=== PATIENT | female | born 1960 | race Caucasian/White ===

== ENCOUNTER 2016-08-23 20:12 | Emergency (ER) | payer BC ==
[~2016-08-23] VITALS: Ht 172.7 cm; Wt 68.2 kg
[~2016-08-23 20:12] MED LIST: IBUP-1542 PO
[2016-08-23 20:45] VITALS: Ht 172.7 cm; Wt 68.2 kg
[2016-08-23] MEDS ORDERED: HYDROCODONE/APAP (5/325) TAB PO ONE (21:00)
--- NOTE | 2016-08-23 22:16 | RADRPT ---
PROCEDURE: XR shoulder. CLINICAL INDICATION: Pain TECHNIQUE: Three views of the right shoulder were performed. COMPARISON: None available. FINDINGS: There is normal mineralization and alignment. No fracture or osseous lesion is identified. The joint spaces are preserved. The soft tissues are unremarkable. RPTAT:HJJR IMPRESSION: Unremarkable right shoulder series. Physician Wes Date Time Electronically viewed and signed by Olaf Umanzor Physician on 08/23/2016 22:16 /
--- NOTE | 2016-08-23 22:16 | RADRPT ---
PROCEDURE: XR Chest. CLINICAL INDICATION: Chest pain. Abdominal pain TECHNIQUE: Portable AP semi - erect view of the chest was obtained. COMPARISON: 12/04/2015 FINDINGS: The cardiomediastinal silhouette is within normal limits. The lungs are clear with slightly low aston g volumes and a suboptimal inspiratory response. There is no evidence for pleural effusion, pneumot horax or pulmonary vascular congestion. The osseous structures are intact with no evidence for acut e abnormality. Calcification is visible within the aortic arch. No free air seen below the diaphrag m RPTAT:HJJR IMPRESSION: 1. No evidence for acute intrathoracic pathology or change from 12/04/2015 allowing for the differen t degrees of inspiration. 2. Aortic atherosclerosis is present. Physician Wes Date Time Electronically viewed and signed by Physician Wes on 08/23/2016 22:16 JR/
[2016-08-23] MEDS ORDERED: HYDR-906 PO (22:45)
[2016-08-23] MEDS ORDERED: HYDROCODONE/APAP (7.5/325) TAB PO ONE (23:00)
[2016-08-23 23:17] VITALS: BP 134/83; PULSE 63; RESP 18; TEMP 98.3
--- NOTE | 2016-08-24 00:36 | ERA ---
ER Documentation Chief Complaint Date/Time DATE: 08/24/16 TIME: 00:29 Chief Complaint r shoulder pain x 1 week; worse today HPI Patient is a 55-year-old female who works in the [employer]. Patient is complaining of right shoulder pain for the past week. Patient's pain is worsened today. Patient claims that the pain radiates down to the chest. Patient's pain is worse with movement and palpation. Patient has not taken any medications to relieve the pain. There are no other associated manifestations. Patient has no cardiac risk factors given in history. ROS All systems reviewed and are negative except as per history of present illness. Medications Home Meds Active Scripts Hydrocodone/Acetaminophen (Kingsley 5-325 Tablet) 1 Each Tablet, 1 TAB PO Q6H Y for PAIN, #20 TAB Prov:RAQUEL GLOVER PA-C 08/23/16 Ibuprofen* (Motrin*) 600 Mg Tab, 600 MG PO Q6, #30 TAB Prov:CYNTHIA HAMILTON PA-C 10/17/15 Allergies Allergies: Coded Allergies: No Known Allergy (Unverified , 01/06/14) PMhx/Soc History of Surgery: Yes (L Achilles Tendon Surgery, abd ulcer sx) Anesthesia Reaction: No Hx Neurological Disorder: No Hx Respiratory Disorders: No Hx Cardiac Disorders: No Hx Psychiatric Problems: No Hx Miscellaneous Medical Probl: Yes (Viral AGE,Nephrolithiasis,Otitis Externa, L Achilles Tendonitis) Hx Alcohol Use: No Hx Substance Use: No Hx Tobacco Use: Yes (Quit years ago) Smoking Status: Former smoker Physical Exam Vitals Vital Signs Date Time Temp Pulse Resp B/P Pulse Ox O2 Delivery O2 Flow Rate FiO2 08/23/16 23:17 98.3 63 18 134/83 98 Room Air 08/23/16 20:45 98.1 90 16 156/95 100 Physical Exam Const: Cachectic 55-year-old female Head: Atraumatic Eyes: Normal Conjunctiva ENT: Normal External Ears, Nose and Mouth. Neck: Full range of motion..~ No meningismus. Resp: Clear to auscultation bilaterally Cardio: Regular rate and rhythm, no murmurs. Chest is mildly tender to palpation. Abd: Soft, non tender, non distended. Normal bowel sounds Skin: No petechiae or rashes Back: No midline or flank tenderness Ext: Limited range of motion of the right shoulder secondary to pain. Tenderness palpation. Positive empty can test and crossover test. Pain with passive and active range of motion. Pain is worse with external ROM. Neur: Awake and alert Psych: Normal Mood and Affect Results 24 hrs Current Medications Medications (Trade) Dose Ordered Sig/Mimi Route PRN Reason Start Time Stop Time Status Last Admin Dose Admin Acetaminophen/ Hydrocodone Bitart (Kingsley (5/325)) 1 tab ONCE ONCE PO 08/23/16 21:00 08/23/16 21:01 DC 08/23/16 21:02 Acetaminophen/ Hydrocodone Bitart (Kingsley (7.5-325)) 1 tab ONCE ONCE PO 08/23/16 23:00 08/23/16 23:01 DC 08/23/16 22:49 Procedures/MDM Patient is complaining of right shoulder pain starting within the past week. Patient denies any history of trauma but states that it is worse with movement and palpation. The patient's pain is most likely musculoskeletal tendinopathy but due to the location went ahead and got a ECG. The ECG was negative. X- rays of the shoulder and chest were taken and were unremarkable. Patient has asked for a note off work. We will go ahead and get a work slip for the night as well as pain medication to take home. Patient has received 2 Kingsley's in the ER. Have given her a list of mailing specialist who can manage her condition further. I have spoken with Dr. Reyes and he agrees with this assessment and plan. Departure Diagnosis: Primary Impression: Right shoulder tendonitis Additional Impressions: Right shoulder tendinitis Shoulder tendonitis Qualified Code: M75.81 - Shoulder tendonitis, right Shoulder tendinitis Qualified Code: M75.81 - Shoulder tendinitis, right Condition: Stable Patient Instructions: Tendonitis Referrals: KANDI IVERSON MD,JOSE RAMON BOYD,RUBY HICKMAN,BARBIE SCHULTZ,LIZZETH PENA,ADA RAMIREZ,MALDONADO CARDENAS,IDRIS DIAMOND,PAULINO DRAKE,CHINYERE HEIN,KARY RODRIGUEZ,AGUSTINA MYLES,IN GRACE HARRISON Additional Instructions: Follow-up with mailing specialist in the next 1-3 days. RAQUEL GLOVER PA-C Aug 24, 2016 00:36
[2016-08-24] MEDS ORDERED: IBUP-1542 PO (10:42)
== END 2016-08-23 23:17 | disposition home or self-care (01) ==
LOC: FTE 20:12
DX: M75.81 Other shoulder lesions, right shoulder (principal); R07.9 Chest pain, unspecified; Z87.891 Personal history of nicotine dependence
CPT/HCPCS: 71010; 93005

== ENCOUNTER 2016-08-24 10:16 | Emergency (ER) | payer BC ==
[~2016-08-24] VITALS: Ht 172.7 cm; Wt 70.0 kg
[~2016-08-24 10:16] MED LIST changes: +HYDR-906 PO
[2016-08-24 10:19] VITALS: Ht 172.7 cm; Wt 70.0 kg
[2016-08-24] MEDS ORDERED: IBUP-1542 PO (10:42)
--- NOTE | 2016-10-09 06:33 | ERA ---
ER Documentation Chief Complaint Date/Time DATE: 08/24/16 TIME: 1027 Chief Complaint RT SHOULDER , RT UPPER BACK PAIN RADIATING TO CHEST X 1 WEEK HPI 56-year-old female presents to the emergency department complaining of an atraumatic shoulder pain 1 week. She denies any fevers chills or functional loss. She denies any significant abdominal or cardiac concerns radiating to her shoulder. ROS All systems reviewed and are negative except as per history of present illness. Medications Home Meds Active Scripts Ibuprofen* (Motrin*) 600 Mg Tab, 600 MG PO Q6H Y for PAIN AND OR ELEVATED TEMP, #30 TAB Prov:RAQUEL GLOVER PA-C 08/24/16 Hydrocodone/Acetaminophen ([place] 5-325 Tablet) 1 Each Tablet, 1 TAB PO Q6H Y for PAIN, #20 TAB Prov:RAQUEL GLOVER PA-C 08/23/16 Ibuprofen* (Motrin*) 600 Mg Tab, 600 MG PO Q6, #30 TAB Prov:CYNTHIA HAMILTON PA-C 10/17/15 Allergies Allergies: Coded Allergies: No Known Allergy (Unverified , 08/24/16) PMhx/Soc History of Surgery: Yes (L Achilles Tendon Surgery, abd ulcer sx) Anesthesia Reaction: No Hx Neurological Disorder: No Hx Respiratory Disorders: No Hx Cardiac Disorders: No Hx Psychiatric Problems: No Hx Miscellaneous Medical Probl: Yes (Viral AGE,Nephrolithiasis,Otitis Externa, L Achilles Tendonitis) Hx Alcohol Use: No Hx Substance Use: No Hx Tobacco Use: Yes (Quit years ago) Smoking Status: Former smoker Physical Exam Physical Exam General: Well-developed well-nourished in no distress Vital signs noted per nursing note Extremity: Cervical spine demonstrates no severe trauma or deformity. Right shoulder demonstrates no obvious deformity with good range of motion and no significant tenderness to palpation., the area of concern was examined in detail. . Patient is neurovascularly intact. Normal tendon function is noted proximal and distal to the injury. No evidence of infection is noted. Compartments are soft and compressible. Skin is intact. Procedures/MDM Patient was taken to a room, seen and examined Medical decision makin-year-old presents with what appears to be a tendinitis/soft tissue injury of her shoulder. Patient shows no evidence of significant high risk orthopedic or other significant injury and appears to be appropriate for outpatient care at this time. Departure Diagnosis: Primary Impression: Right shoulder tendinitis Additional Impression: Shoulder tendonitis Condition: Stable Patient Instructions: Tendonitis Additional Instructions: Follow-up with orthopedics as soon as possible. SHAHZAD STALLINGS October 09, 2016 06:33
== END 2016-08-24 10:57 | disposition home or self-care (01) ==
LOC: FTE 10:16
DX: M75.91 Shoulder lesion, unspecified, right shoulder (principal); Z87.891 Personal history of nicotine dependence
CPT/HCPCS: 99283